=== PATIENT | female | born 1990 | race Caucasian/White ===

== ENCOUNTER 2016-10-22 07:30 | Inpatient (IN) | payer OTHER ==
[~2016-10-22] VITALS: Ht 154.9 cm; Wt 67.9 kg
[2016-10-26] MEDS ORDERED: BENZ100C70 PO (09:58)
[2016-10-26] MEDS ORDERED: IBUP-1542 PO (09:58)
[2016-12-22] VITALS (25 sets, daily range): BP systolic 83–121; BP diastolic 46–70; PULSE 87–117; RESP 9–19; Ht 154.9 cm; Wt 67.9 kg
[2016-12-22] MEDS ORDERED: CEFAZOLIN 2 GM/50 ML (PMX) 50 ML IVPB SCH (06:00)
[2016-12-22] MEDS ORDERED: LACTATED RINGER'S 1,000 ML IV SCH (06:00)
[2016-12-22] MEDS ORDERED: ROCURONIUM 50 MG INJ ONE (07:00)
[2016-12-22] MEDS ORDERED: DESFLURANE 15 MIN ONE (07:00)
--- NOTE | 2016-12-22 07:31 | HPN ---
Date/Time of Note Date/Time of Note DATE: 12/22/16 TIME: 07:30 Interval H&P Admission Note Pt. seen H&P reviewed: No system changes LINDA HIGUERA MD Dec 22, 2016 07:31
[2016-12-22] MEDS ORDERED: LIDOCAINE 2% (SDV) 5 ML INJ ONE (07:41)
[2016-12-22] MEDS ORDERED: SUCCINYLCHOLINE CHLORIDE 100 MG/5 ML SYG IV ONE (07:41)
[2016-12-22] MEDS ORDERED: PROPOFOL 20 ML ONE (07:41)
[2016-12-22] MEDS ORDERED: FENTAnyl 50 MCG/ML VIAL ONE (07:41)
[2016-12-22] MEDS ORDERED: MIDAZOLAM 1 MG/ML 2 ML INJ ONE (07:41)
[2016-12-22] MEDS ORDERED: CEFAZOLIN 1 GM INJ ONE (07:42)
[2016-12-22] MEDS ORDERED: ONDANSETRON 4 MG INJ ONE (07:54)
[2016-12-22] MEDS ORDERED: DEXAMETHASONE 4 MG/ML 1 ML INJ ONE (07:54)
[2016-12-22] MEDS ORDERED: METOCLOPRAMIDE 10 MG INJ ONE (07:54)
[2016-12-22] MEDS ORDERED: HYDROmorphONE 2 MG/ML SYG ONE (08:14)
[2016-12-22] MEDS ORDERED: DIPHENHYDRAMINE 50 MG INJ IV PRN (08:30)
[2016-12-22] MEDS ORDERED: MEPERIDINE 25 MG INJ IV PRN (08:30)
[2016-12-22] MEDS ORDERED: PROCHLORPERAZINE 10 MG INJ IV PRN (08:30)
[2016-12-22] MEDS ORDERED: ONDANSETRON 4 MG INJ IV PRN ×2 (08:30→16:30)
[2016-12-22] MEDS ORDERED: FENTAnyl 50 MCG/ML VIAL IV PRN (08:30)
[2016-12-22] MEDS ORDERED: OXYCODONE/ACETAMINOPHEN (5/325) TAB PO PRN ×2 (08:30)
[2016-12-22] MEDS ORDERED: HYDROmorphONE (0.2 MG/ML) 10ML SYG IV PRN ×2 (08:30)
[2016-12-22] MEDS ORDERED: KETOROLAC 30 MG INJ ONE (08:36)
[2016-12-22] MEDS ORDERED: NEOSTIGMINE 3 MG/3 ML SYRINGE ONE (09:31)
[2016-12-22] MEDS ORDERED: GLYCOPYRROLATE 0.4 MG INJ ONE (09:31)
[2016-12-22] MEDS ORDERED: BUPIVACAINE 0.5%/EPI (SDV) 30 ML INJ ONE (09:47)
[2016-12-22] MEDS ORDERED: ACETAMINOPHEN 325 MG TAB PO PRN (10:00)
[2016-12-22] MEDS ORDERED: IBUPROFEN 600 MG TAB PO SCH (10:00)
[2016-12-22] MEDS: HYDROCODONE/APAP (5/325) TAB PO PRN (11:37)
[2016-12-22 13:20] LABS: ADD SCAN DIFF NO
[2016-12-22] MEDS ORDERED: SOD CHLORIDE 0.9% 500 ML IV ONE (13:30)
[2016-12-22 13:36] LABS: BASOPHILS % 0.1 % (0.0-2.0); HEMATOCRIT 30.8 % (37.0-47.0); HEMOGLOBIN 9.9 g/dl (12.0-16.0); LYMPHOCYTES # 0.6 10^3/ul (0.8-2.9); LYMPHOCYTES % 4.4 % (15.0-51.0); MEAN CORPUSCULAR HGB CONC 32.1 g/dl (32.0-37.0); MEAN PLATELET VOLUME 9.6 fl (7.4-10.4); MONOCYTE # 0.1 10^3/ul (0.3-0.9); MONOCYTES % 0.7 % (0.0-11.0); NEUTROPHIL # 12.9 10^3/ul (1.6-7.5); NEUTROPHILS % 94.6 % (39.0-77.0); PLATELET COUNT 376 10^3/UL (140-415); RED BLOOD COUNT 3.54 10^6/ul (4.20-5.40); RED CELL DISTRIBUTION WIDTH 14.5 % (11.5-14.5); WHITE BLOOD COUNT 13.7 10^3/ul (4.8-10.8)
[2016-12-22] MEDS: IBUPROFEN 600 MG TAB PO SCH ×2 (14:00→22:13)
[2016-12-22] MEDS: LACTATED RINGER'S 1,000 ML IV SCH ×2 (15:22→21:18)
[2016-12-23 00:02] VITALS: BP 112/66; PULSE 95; RESP 17
[2016-12-23 04:00] VITALS: BP_SYST 110; BP_SYST 118; BP_DIAS 62; BP_DIAS 65; PULSE 90; PULSE 95; RESP 18
[2016-12-23] MEDS: HYDROCODONE/APAP (5/325) TAB PO PRN (04:40)
[2016-12-23 05:00] LABS: ADD SCAN DIFF NO
[2016-12-23 05:11] LABS: BASOPHILS % 0.1 % (0.0-2.0); HEMATOCRIT 28.3 % (37.0-47.0); LYMPHOCYTES # 1.6 10^3/ul (0.8-2.9); LYMPHOCYTES % 16.5 % (15.0-51.0); MEAN CORPUSCULAR HEMOGLOBIN 27.4 pg (29.0-33.0); MEAN CORPUSCULAR HGB CONC 31.8 g/dl (32.0-37.0); MEAN PLATELET VOLUME 9.6 fl (7.4-10.4); MONOCYTE # 0.9 10^3/ul (0.3-0.9); MONOCYTES % 8.8 % (0.0-11.0); NEUTROPHIL # 7.2 10^3/ul (1.6-7.5); NEUTROPHILS % 74.3 % (39.0-77.0); PLATELET COUNT 337 10^3/UL (140-415); RED BLOOD COUNT 3.29 10^6/ul (4.20-5.40); WHITE BLOOD COUNT 9.7 10^3/ul (4.8-10.8)
[2016-12-23] MEDS: LACTATED RINGER'S 1,000 ML IV SCH ×2 (05:13→13:31)
[2016-12-23 05:26] LABS: POTASSIUM 3.9 mmol/L (3.5-5.1)
[2016-12-23 05:28] LABS: CREATININE 0.52 mg/dl (0.44-1.00)
[2016-12-23 05:29] LABS: CALCIUM 8.8 mg/dl (8.4-10.2)
[2016-12-23] MEDS: IBUPROFEN 600 MG TAB PO SCH ×3 (06:13→22:01)
[2016-12-23 07:18] VITALS: BP 110/68; RESP 18
--- NOTE | 2016-12-23 07:47 | PN ---
Date/Time of Note Date/Time of Note DATE: 12/23/16 TIME: 07:43 Assessment/Plan Lines/Catheters IV Catheter Type (from Nrsg): Peripheral IV Coelho in Place (from Nrsg): Yes Assessment/Plan Assessment/Plan stable s/p lysis of adhesion and bilateral ovarian cystectomy cont in hosp for pain management Cont'd Hospitalization Reason: / Subjective 24 Hr Interval Summary no flatus yet tolerating liquid Exam/Review of Systems Vital Signs Vitals Vital Signs Date Time Temp Pulse Resp B/P Pulse Ox O2 Delivery O2 Flow Rate FiO2 12/23/16 07:18 97.9 105 18 110/68 93 12/23/16 04:00 Room Air 12/22/16 10:02 8.0 Intake and Output 12/22/16 12/22/16 12/23/16 15:00 23:00 07:00 Intake Total 2475 ml 740 ml 1720 ml Output Total 350 ml 600 ml 2500 ml Balance 2125 ml 140 ml -780 ml Exam Free Text/Dictation vss afebrile hr 105 this am abdomen soft wound dry no vaginal bleeding calf neg for tenderness Constitutional: alert, oriented, well developed Psych: nl mood/affect, no complaints Head: atraumatic, normocephalic Eyes: EOMI, nl conjunctiva, nl lids, nl sclera ENMT: mucosa pink and moist, nl external ears & nose, nl lips & teeth, nl nasal mucosa & septum Neck: non-tender, supple Respiratory: clear to auscultation, normal air movement Cardiovascular: nl pulses, regular rate and rhythm Gastrointestinal: nl liver, spleen, non-tender, soft Musculoskeletal: nl extremities to inspection, nl gait and stance Extremities: normal pulses Neurological: EXCEL VBA DEVELOPER II-XII intact, nl mental status, nl speech, nl strength Skin: nl turgor, rash or lesions Lymph: nl lymph nodes Results Result Diagram: 12/23/16 0433 12/23/16 0433 LINDA HIGUERA MD Dec 23, 2016 07:47
--- NOTE | 2016-12-23 09:09 | OPR ---
DATE OF OPERATION: 12/22/2016 PREOPERATIVE DIAGNOSES: 1. Bilateral ovarian cysts. 2. Severe dysmenorrhea. 3. Possible endometrioma. POSTOPERATIVE DIAGNOSES: 1. Frozen pelvis with severe pelvic adhesions. 2. Bilateral endometrioma. OPERATIONS PERFORMED: 1. Lysis of adhesions. 2. Bilateral ovarian cystectomy. ANESTHESIA: General. ANESTHESIOLOGIST: Katiuska Perez MD SURGEON: Sony Davis MD SHOE CLERK: Luis Figueroa MD ESTIMATED BLOOD LOSS: Less than 100 mL. DESCRIPTION OF PROCEDURE: Under appropriate induction of general anesthesia, the patient was placed in frog position. Coelho catheter was introduced into the bladder under sterile condition and repos itioned to supine. Abdominal wall was prepped and draped in usual aseptic manner. A Pfannenstiel i ncision was made approximately 8 cm in length. Incision was carried down through the subcutaneous t issue to the anterior rectus fascia which was incised the length of the incision. Fascial flap was created by blunt and sharp dissection of tendinous attachment to cephalad and caudad. The rectus mu scle split, peritoneal cavity was entered. Pelvic organ explored distally. First left adnexa was c hecked which revealed large cystic mass approximately 7 cm in diameter and stuck to the pelvic floor to the adjacent organ, completely stuck. On the right side again, similar size of cystic mass whic h is stuck to the pelvic floor and adjacent tissue/adjacent organ. Starting from the left adnexa, t he cysts were smooth and relatively thick, and there is a strong possibility of endometriosis noted. Gently using fingers, blindly trying to separate it from the pelvic floor, and gradually released from the floor and adjacent tissue/adjacent organ and using ____ and the Metzenbaum scissors and mraicarmen nging out of the floor and in the middle of the procedure the cyst was ruptured and revealed chocola te-colored material escaping from the cyst noted, a chocolate cyst. At this point it was decided to do the cystectomy because both ovaries completely involved with the chocolate cyst and considering her age, 26, doing the cystectomy and postop Lupron injection. So peeled off the cystic wall from t he left side ovary which was inside out, and the entire cystic wall was removed from the left ovary, and starting from the hilum and the reclosure of the rest of the ovarian tissue using 2-0 chromic c atgut in horizontal mattress manner. A piece of Interceed was covered which was sewed to the cortex . Then the right side adnexa also released from the pelvic floor, and then entire ovary was freed f rom the pelvic floor. Obviously leaking from the same material from the cyst and the cyst was insid e out and the entire cystic wall was removed from the ovarian tissue. No significant bleeding, and starting from the apex the entire ovary was remade and closed with 2-0 chromic catgut in horizontal mattress manner, and a piece of Interceed was covered on the incision site. Vigorous irrigation was done, bleeder checked which was intact, and especially on the right pelvic floor, a piece of Interc eed placed for the prevention of further adhesions. After all the hemostasis was secured, the spong e count taken which was correct, and parietal peritoneum was closed using 0 chromic catgut in contin uous manner, muscle closed with 0 chromic catgut in continuous manner. Fascia closed with #1 Monocr yl in continuous manner in 2 segments. Subcutaneous tissue irrigated with water. This layer was ap proximated with a 2-0 plain in continuous manner. Skin closed with a 3-0 Monocryl in subcuticular m gordy. Steri-Strip applied. A pressure dressing applied. Estimated blood loss less than 100 mL. The patient was sent to recovery room in stable condition. Dictated By: OSNY FUNES/BALDO Conf#: [id number] DID#: [id number]
[2016-12-23 19:32] VITALS: BP 114/62; RESP 18
[2016-12-24] MEDS: IBUPROFEN 600 MG TAB PO SCH ×3 (06:00→14:00)
[2016-12-24 07:50] VITALS: BP 102/65; RESP 18
--- NOTE | 2016-12-24 13:55 | PD.PPDC ---
[employer] Discharge Instruction Diagnosis Final Diagnosis: pelvic adhesion severe dysmenorrhea, bilaaterl ovarian cyst Condition Patient Condition: Good Diet Diet: Resume Regular Diet Activity/Restrictions Restrictions: No Exercising No Lifting Minimize Stair-climbing No Sexual Activity Nothing in the Vagina No [place] No Tampons, douche Wound/Drain Care Instructions Wound/Drain Care Instructions: Wash with soap and water Keep clean and dry Follow-up Follow-up with Physician: 2, Week/Weeks Return to clinic for BOTTLE HOP Instructions: Fever greater than 101 Chills Worsening abdominal pain Excessive Vaginal Bleeding More than 2 pads per hour Unable to tolerate diet Surgical Instructions: Incisional Drainage Incisional Redness LINDA HIGUERA MD Dec 24, 2016 13:54
--- NOTE | 2016-12-24 14:00 | DS ---
Date/Time of Note Date/Time of Note DATE: 12/24/16 TIME: 13:56 Discharge Summary Admission/Discharge Info Admit Date/Time Dec 22, 2016 at 06:00 Discharge Date/Time december 24 2016 at 1400 Final Diagnosis pelvic adhesion bilateral ovarian cysts (endometriom) Patient Condition: Stable Procedures exploratory laparotomy lysis of adhesion bilateral ovarian cystectomy Hx of Present Illness admittedf for surgidal intervention for bilateral ovarian cystz Hospital Course po unevenful tolerating diet well and pain control; ok d/s home rto in 2weeks for f/u Home Meds Active Scripts Ibuprofen* (Motrin*) 600 Mg Tab, 600 MG PO Q6H Y for PAIN AND OR ELEVATED TEMP, #30 TAB Prov:HEIDE DELVALLE PA-C 10/26/16 Benzonatate* (Tessalon Perle*) 100 Mg Capsule, 100 MG PO Q8H Y for COUGH, #20 CAP Prov:HEIDE DELVALLE PA-C 10/26/16 Reported Medications [None] No Conflict Check 10/19/11 [none] No Conflict Check 09/26/10 Follow-up Plan 2weeks LINDA HIGUERA MD Dec 24, 2016 14:00
== END 2016-12-24 15:20 | disposition home or self-care (01) | DRG 743 ==
LOC: EDSTATUS 07:30 → REC 12-22 06:00 → MS1 12-22 11:23
PROVIDERS: ADMIT Obstetrics & Gynecology; ATTEND Obstetrics & Gynecology
PROC: 0UB20ZZ Excision of Bilateral Ovaries, Open Approach (ICD-10-PCS; principal; 2016-12-22 07:30)
DX: N80.1 Endometriosis of ovary (principal); N73.6 Female pelvic peritoneal adhesions (postinfective); N94.89 Other specified conditions associated with female genital organs and menstrual cycle; N83.202 Unspecified ovarian cyst, left side; N83.201 Unspecified ovarian cyst, right side
CPT/HCPCS: 80048; 85025; 86850; 86900; 86901; 86920; 87086; 88305; J0330; J0690; J1100; J1170; J1885; J2250; J2405; J2710; J2765; J3010; J7040; J7120

== ENCOUNTER 2016-10-26 08:46 | Emergency (ER) | payer OTHER ==
[~2016-10-26] VITALS: Wt 67.2 kg
--- NOTE | 2016-10-26 09:54 | RADRPT ---
PROCEDURE: XR Chest. CLINICAL INDICATION: Cough/fever TECHNIQUE: Chest AP portable. COMPARISON: No comparison available. FINDINGS: The mediastinal structures are unremarkable. The heart is normal in size and configuration. The pu lmonary vascularity is normal. There is mild bilateral perihilar peribronchial cuffing. No consoli dation is identified. The pleural spaces are unremarkable. The axial skeleton is unremarkable. IMPRESSION: Mild bilateral perihilar peribronchial cuffing. No consolidation identified. RPTAT: HGDB .Howard Felder MD, MD Date Time Electronically viewed and signed by .Howard Felder MD, on 10/26/2016 09:53 .B/
[2016-10-26] MEDS ORDERED: IBUP-1542 PO (09:58)
[2016-10-26] MEDS ORDERED: BENZ100C70 PO (09:58)
--- NOTE | 2016-10-26 10:01 | ERD ---
ER Documentation Chief Complaint Date/Time DATE: 10/26/16 TIME: 09:59 Chief Complaint cough fever and sore throat for the past few days HPI This is a 26-year-old female presenting to the emergency room brought in by self complaining of cough, congestion, sore throat for the past 2 weeks. Patient denies taking any medications for this. Denies any vomiting, diarrhea. Denies any fever ROS All systems reviewed and are negative except as per history of present illness. Medications Home Meds Active Scripts Ibuprofen* (Motrin*) 600 Mg Tab, 600 MG PO Q6H Y for PAIN AND OR ELEVATED TEMP, #30 TAB Prov:HEIDE DELVALLE-Noah 10/26/16 Benzonatate* (Tessalon Perle*) 100 Mg Capsule, 100 MG PO Q8H Y for COUGH, #20 CAP Prov:HEIDE DELVALLE-Noah 10/26/16 Reported Medications [None] No Conflict Check 10/19/11 [none] No Conflict Check 09/26/10 Allergies Allergies: Coded Allergies: No Known Allergies (Verified Allergy, Mild, 10/26/16) No Known Allergy (Verified , 09/26/10) PMhx/Soc Medical and Surgical Hx: pt denies Medical Hx, pt denies Surgical Hx History of Surgery: Yes (APPENDIX) Anesthesia Reaction: No Hx Neurological Disorder: No Hx Respiratory Disorders: No Hx Cardiac Disorders: No Hx Psychiatric Problems: No Hx Miscellaneous Medical Probl: No Hx Alcohol Use: No Hx Substance Use: No Hx Tobacco Use: No Physical Exam Vitals Vital Signs Date Time Temp Pulse Resp B/P Pulse Ox O2 Delivery O2 Flow Rate FiO2 10/26/16 08:53 97.6 100 21 125/71 99 Physical Exam PROCEDURE: XR Chest. CLINICAL INDICATION: Cough/fever GENERAL: well-developed/well-nourished, in no apparent distress, non-toxic appearing HEAD: NC/AT, no swelling noted in frontal or maxillary areas EARS: bilateral tympanic membrane is intact without erythema or effusion NARES: nares patent THROAT: oropharynx non-erythematous EYES: Conjunctiva normal NECK: Supple, no lymphadenopathy PULM: CTA bilaterally, no rales, rhonchi, or wheezing heard CV: Normal S1S2, RRR, good capillary refill GI: Soft, non-distended, normal bowel sounds, non-tender BACK: No midline tenderness, no masses EXT No clubbing, cyanosis, or edema NEURO: Alert and Orientated SKIN: Intact, normal turgor PSYCH: Normal mood and mentation Procedures/MDM This is a 26-year-old female presenting to the emergency room with symptoms most consistent with a viral upper respiratory infection. On examination patient was breathing well on room air, she did not have any evidence of respiratory distress. She is saturating well on room air. Her lungs are clear to auscultation. I will low suspicion for pneumonia, strep pharyngitis, otitis media. Patient had a cough for 2 weeks a chest x-ray was done and did not show any evidence of infiltrates, pneumothorax or pleural effusion. Patient is stable for discharge to follow-up wit primary care physician. Prescription for Tessalon Perles, ibuprofen was provided. Discussed return to the ER for any worsening symptoms. She understands and agrees with Departure Diagnosis: Primary Impression: URI (upper respiratory infection) URI type: unspecified viral URI Qualified Code: J06.9 - Viral upper respiratory tract infection Condition: Stable Patient Instructions: Preventing Common Respiratory Infections, Uri, Viral, No Abx (Adult) Additional Instructions: FOLLOW UP WITH YOUR PRIMARY CARE PHYSICIAN TOMORROW.Return to this facility if you are not improving as expected. [facility] se le indic. Return to this facility if you are not improving as expected. HEIDE DELVALLE PA-C Oct 26, 2016 10:01
== END 2016-10-26 10:22 | disposition home or self-care (01) ==
LOC: FTE 08:46
DX: J06.9 Acute upper respiratory infection, unspecified (principal)
CPT/HCPCS: 71010; Z7502

== ENCOUNTER 2017-07-28 19:36 | Emergency (ER) | payer OTHER ==
[~2017-07-28] VITALS: Ht 154.9 cm; Wt 75.0 kg
[~2017-07-28 19:36] MED LIST: BENZ100C70 PO; IBUP-1542 PO
[2017-07-28 19:44] VITALS: Ht 154.9 cm; Wt 75.0 kg
--- NOTE | 2017-07-28 22:43 | ERD ---
ER Documentation Chief Complaint Chief Complaint SOB, chest pressure X 1 day. HPI [age]-year-old female presented with a chief complaint of chest pressure and shortness of breath 1 day. Patient is on leuprolide for endometriosis. No other medical conditions. No similar symptoms in the past no sick contacts. Describes the chest pain as squeezing. No aggravating or alleviating factors. Intermittent. Denies wheezing, cough, fever, chills, headache, neck stiffness, abdominal pain, nausea, vomiting, diarrhea. No family cardiac history. Patient has no other complaints and describes no other associated manifestations. Nursing notes have been reviewed and are consistent with history given. ROS All systems reviewed and are negative except as per history of present illness. Medications Home Meds Active Scripts Ibuprofen* (Motrin*) 600 Mg Tab, 600 MG PO Q6H Y for PAIN AND OR ELEVATED TEMP, #30 TAB Prov:HEIDE DELVALLE PA-C 10/26/16 Benzonatate* (Tessalon Perle*) 100 Mg Capsule, 100 MG PO Q8H Y for COUGH, #20 CAP Prov:HEIDE DELVALLE PA-C 10/26/16 Reported Medications [None] No Conflict Check 10/19/11 [none] No Conflict Check 09/26/10 Allergies Allergies: Coded Allergies: No Known Allergies (Verified Allergy, Mild, 12/22/16) PMhx/Soc Medical and Surgical Hx: pt denies Surgical Hx History of Surgery: No Anesthesia Reaction: No Hx Neurological Disorder: No Hx Respiratory Disorders: No Hx Cardiac Disorders: No Hx Psychiatric Problems: No Hx Miscellaneous Medical Probl: Yes (endometriosis) Hx Alcohol Use: No Hx Substance Use: No Hx Tobacco Use: No Smoking Status: Never smoker Physical Exam Vitals Vital Signs Date Time Temp Pulse Resp B/P Pulse Ox O2 Delivery O2 Flow Rate FiO2 07/28/17 19:44 98.2 92 20 138/97 99 Physical Exam Const: Overweight but otherwise well-appearing 27-year-old female in NAD Head: Atraumatic Eyes: Normal Conjunctiva ENT: Normal External Ears, Nose and Mouth. Neck: Full range of motion..~ No meningismus. Resp: Clear to auscultation bilaterally. Percussion unremarkable. No pleuritic chest pain. Cardio: Regular rate and rhythm, no murmurs. No increasing pain with leaning forwards. No pain related to exertion. Abd: Soft, non tender, non distended. Normal bowel sounds Skin: No petechiae or rashes Back: No midline or flank tenderness Ext: No cyanosis, or edema Neur: Awake and alert Psych: Normal Mood and Affect Procedures/MDM 27-year-old female presenting with a chief complaints of chest squeezing and shortness of breath. History of endometriosis. On leuprolide. No other medications or medical conditions. No family history of cardiac pathologies. EKG taken read by my attending as no STEMI. EKG read by me as normal rate, normal rhythm, no ST elevations or depressions, no T-wave abnormalities, normal axis and good baseline. At this time I will suspicion for airway obstructive pathologies, ACS, pulmonary embolism, hypertrophic cardiomyopathy or other genetic conditions, pericarditis, pneumothorax or hemothorax, pneumonia or other serious bacterial infection. Most likely diagnosis is chest pain of unknown etiology. I recommended follow-up with PCP in the next 2-3 days. I have spoke with the patient regarding their condition and future management. They have verbally responded that they understand their status and treatment plan. The patients vitals are stable, and their current condition is appropriate for discharge. The patient will be given discharge instructions with return precautions. Departure Diagnosis: Primary Impression: Chest pain Chest pain type: unspecified Qualified Code: R07.9 - Chest pain, unspecified type Additional Impression: Shortness of breath Condition: Stable Additional Instructions: Follow up with your PCP within the next 1-3 days for a more thorough evaluation and a possible referral to a specialist. Return the the emergency department immediately if symptoms worsen or change. If you have any questions regarding medications, ask your pharmacist or us before you leave. If any adverse reactions occur while taking your medications, discontinue the treatment and return to the emergency department immediately. Take your medications as directed, and complete the entire course of treatment. YAMEL WELCH PA-C Jul 28, 2017 22:43
== END 2017-07-28 23:26 | disposition home or self-care (01) ==
LOC: FTE 19:36
DX: R06.02 Shortness of breath (principal); R07.89 Other chest pain
CPT/HCPCS: 93005; Z7502

== ENCOUNTER 2017-08-07 16:49 | Emergency (ER) | payer OTHER ==
[~2017-08-07] VITALS: Ht 167.6 cm; Wt 64.4 kg
[2017-08-07 16:55] VITALS: Ht 167.6 cm; Wt 64.4 kg
[2017-08-07] MEDS ORDERED: NAPR-260 PO (17:33)
--- NOTE | 2017-08-07 17:38 | ERD ---
ER Documentation Chief Complaint Chief Complaint R.Foot pain/swelling x 3 days UKN cause HPI This is a 27-year-old male this patient is a 27-year-old female who presents with right foot pain and swelling. She denies any trauma that she can think of. She is ambulatory. Occasionally she gets numbness and tingling there. She states earlier it was red and swollen but that has now subsided. She has not taken any medications for this. ROS All systems reviewed and are negative except as per history of present illness. Medications Home Meds Active Scripts Naproxen* (Naprosyn*) 500 Mg Tablet, 500 MG PO BID Y for PAIN AND/OR INFLAMMATION, #30 TAB Prov:CICI SHELBY PA-C 08/07/17 Ibuprofen* (Motrin*) 600 Mg Tab, 600 MG PO Q6H Y for PAIN AND OR ELEVATED TEMP, #30 TAB Prov:HEIDE DELVALLE PA-C 10/26/16 Benzonatate* (Tessalon Perle*) 100 Mg Capsule, 100 MG PO Q8H Y for COUGH, #20 CAP Prov:HEIDE DELVALLE PA-C 10/26/16 Reported Medications [None] No Conflict Check 10/19/11 [none] No Conflict Check 09/26/10 Allergies Allergies: Coded Allergies: No Known Allergies (Verified Allergy, Mild, 08/07/17) PMhx/Soc History of Surgery: Yes (appy) Anesthesia Reaction: No Hx Neurological Disorder: No Hx Respiratory Disorders: No Hx Cardiac Disorders: No Hx Psychiatric Problems: No Hx Miscellaneous Medical Probl: Yes (anemia, endometreosis) Hx Alcohol Use: No Hx Substance Use: No Hx Tobacco Use: No Smoking Status: Never smoker FmHx Family History: No diabetes Physical Exam Vitals Vital Signs Date Time Temp Pulse Resp B/P Pulse Ox O2 Delivery O2 Flow Rate FiO2 08/07/17 16:55 98.8 86 19 121/77 99 Physical Exam Const: [] Head: Atraumatic Eyes: Normal Conjunctiva ENT: Normal External Ears, Nose and Mouth. Neck: Full range of motion..~ No meningismus. Resp: Clear to auscultation bilaterally Cardio: Regular rate and rhythm, no murmurs Ext: Very mild soft tissue swelling over the dorsal surface of the right foot particularly along the base of the third through fifth toes, no erythema, no tenderness to palpation, no warmth, pedal pulses 2+, sensation to light touch is intact throughout, no bony abnormalities, capillary refill less than 2 seconds Procedures/MDM 27-year-old female presents with right foot pain and swelling. There is no trauma therefore no imaging was ordered. She is ambulatory neurovascular intact. Patients is alert, oriented, well appearing, and in no distress with normal vital signs. There is no fever, tachycardia, or tachypnea. There is questionably some very minimal swelling however no erythema and no warmth. It does not appear to be infectious in nature. Most likely musculoskeletal in nature she is discharged with anti-inflammatories. Patient counseled regarding my diagnostic impression and care plan. Prior to discharge all questions answered. Pt agrees with treatment plan and understands strict return precautions. Pt is instructed to follow up with primary care provider within 24- 48 hours. Precautionary instructions provided including instructions to return to the ER if not improving or for any worsening or changing symptoms or concerns. Departure Diagnosis: Primary Impression: Foot pain Condition: Stable Patient Instructions: Sprain Foot Additional Instructions: Call your primary care doctor TOMORROW for an appointment during the next 1-2 days.See the doctor sooner or return here if your condition worsens before your appointment time. CICI SHELBY PA-C Aug 07, 2017 17:38
== END 2017-08-07 17:42 | disposition home or self-care (01) ==
LOC: FTE 16:49
DX: M79.671 Pain in right foot (principal)
CPT/HCPCS: 99283